=== PATIENT | male | born 1950 | race Caucasian/White ===

== ENCOUNTER 2021-02-28 17:50 | Emergency (ER) | payer MEDICARE, OTHER ==
[2021-02-15 14:45] VITALS: BP 108/64
[~2021-02-28 17:50] MED LIST: ALBU2.5V8 IH; APIX5TAB PO; ATOR20TA PO; FLUT16SP NS; FURO-69 PO; GABA600T7 PO; INSU100I13 SQ; LEVO150T PO; LOSA1TAB22 PO; METF500T16; METF500T16 PO; TIOT4MIS3 IH; VENTOLIN HFA18 GM INH
--- NOTE | 2021-02-28 18:17 | PHYS DOC ---
Past Medical History Smoking Status: Former Smoker General Adult EDM: Chief Complaint: CPR/FULL ARREST HPI: HPI: Patient is a 70 year old presents via EMS in cardiac arrest. Patient had ET tube and right chest tube in place. EMS had cardiac compression device providing chest compressions. CPR by facility 15 minutes CPR by EMS 25 minutes CPR in ER 10 minutes Patient without return of spontaneous circulation. Exam- lungs with breath sound bilateral. Pulses with chest compression. Time of 1759hrs Review of Systems: Review of Systems: unable to obtain due to medical condition Heart Score: C/O Chest Pain: N/A Risk Factors: Risk Factors: DM, Current or recent (<one month) smoker, HTN, HLP, family history of CAD, obesity. Risk Scores: Score 0 - 3: 2.5% MACE over next 6 weeks - Discharge Home Score 4 - 6: 20.3% MACE over next 6 weeks - Admit for Clinical Observation Score 7 - 10: 72.7% MACE over next 6 weeks - Early Invasive Strategies Allergies: Allergies: Allergies Coded Allergies Type Severity Reaction Last Updated Verified I S O L A T I O N *CONTACT* Allergy Unknown 02/14/21 Yes No Known Medication Allergies Allergy Unknown 02/14/21 Yes Physical Exam: PE: Constitutional: unresponsive HENT: Normocephalic, atraumatic, et tube secured in place Neck: supple, Cardiovascular: pulses only with compression, Lungs & Thorax: bilateral breath sounds with bagging Abdomen: soft, no tenderness, no masses, no pulsatile masses. [] Skin: Warm, dry, no erythema, no rash. [] Extremities: no deformities Neurologic: unresponsive EKG: EKG: [] Radiology/Procedures: Radiology/Procedures: [] Course & Med Decision Making: Course & Med Decision Making Pertinent Labs and Imaging studies reviewed. (See chart for details) []No ROSC. Code by RAO Carpenter Disclaimer: Jayden Disclaimer: This electronic medical record was generated, in whole or in part, using a voice recognition dictation system. Departure Departure Impression: Primary Impression: Cardiac arrest Disposition: 20 Condition: STABLE Referrals: RAIN OLIVIA (PCP) KINGA MOORE DO Feb 28, 2021 18:17
== END 2021-02-28 20:41 ==
LOC: ER 17:50
DX: I46.9 Cardiac arrest, cause unspecified (principal); Z88.8 Allergy status to other drugs, medicaments and biological substances
CPT/HCPCS: 92950; 99285-25